=== PATIENT | female | born 1995 ===

== ENCOUNTER 2020-12-30 03:52 | Inpatient (IN) | payer OTHER ==
[2020-12-30] MEDS ORDERED: Nalbuphine 10 MG/1 ML Vial IVPUSH PRN (09:13)
[2020-12-30] MEDS ORDERED: Water For Irrigation,Sterile 1,000 ML Container IRR PRN (09:13)
[2020-12-30] MEDS ORDERED: Tranexamic Acid 1,000 MG in Sodium Chloride 0.9% 100 ML IV PRN (09:13)
[2020-12-30] MEDS ORDERED: Sodium Chloride 0.9% 2.5 ML Syringe FLUSH PRN (09:13)
[2020-12-30] MEDS ORDERED: Misoprostol 200 MCG Tab PO PRN (09:13)
[2020-12-30] MEDS ORDERED: Sodium Chloride 0.9% 10 ML SDV IV PRN (09:13)
[2020-12-30] MEDS ORDERED: Lidocaine 1% 50 ML MDV INJECT PRN (09:13)
[2020-12-30] MEDS ORDERED: Carboprost Tromethamine 250 MCG/1 ML Amp IM PRN (09:13)
[2020-12-30] MEDS ORDERED: Sodium Chloride 0.9% 10 ML Syringe FLUSH PRN (09:13)
[2020-12-30] MEDS ORDERED: Butorphanol 1 MG/ML SDV IVPUSH PRN (09:13)
[2020-12-30] MEDS ORDERED: Methylergonovine 0.2 MG/1 ML Amp IM PRN (09:13)
[2020-12-30] MEDS ORDERED: Oxytocin/0.9 % Sodium Chloride 30 UNIT/500 ML BAG IV SCH (09:15)
[2020-12-30] MEDS ORDERED: Lactated Ringers 1,000 ML IV SCH (09:15)
--- NOTE | 2020-12-30 09:35 | PCM.PREANE ---
Preanesthetic Assessment - Procedure Proposed Procedure: Interthecal for labor and delivery - Anesthesia/Transfusion/Family Hx Anesthesia History: Prior Anesthesia Without Reaction Family History of Anesthesia Reaction: No Transfusion History: No Prior Transfusion(s) - Review of Systems General: No Symptoms Pulmonary: No Symptoms Cardiovascular: No Symptoms Gastrointestinal: No Symptoms Neurological: No Symptoms Other: Reports: None - Physical Assessment NPO Status Date: 12/30/20 NPO Status Time: 06:00 Height: 5 ft 2 in Weight: 173 lb ASA Class: 2 Mental Status: Alert & Oriented x3 Airway Class: Mallampati = 2 Dentition: Reports: Normal Dentition ROM/Head Extension: Full Lungs: Clear to Auscultation, Normal Respiratory Effort Cardiovascular: Regular Rate, Regular Rhythm - Lab Values: Laboratory Last Values WBC 15.09 K/uL (4.0-11.0) H 12/30/20 08:50 RBC 3.82 M/uL (4.30-5.90) L 12/30/20 08:50 Hgb 11.1 g/dL (12.0-16.0) L 12/30/20 08:50 Hct 33.1 % (36.0-46.0) L 12/30/20 08:50 MCV 86.6 fL (80.0-98.0) 12/30/20 08:50 MCH 29.1 pg (27.0-32.0) 12/30/20 08:50 MCHC 33.5 g/dL (31.0-37.0) 12/30/20 08:50 RDW Std Deviation 44.2 fl (28.0-62.0) 12/30/20 08:50 RDW Coeff of Eh 14 % (11.0-15.0) 12/30/20 08:50 Plt Count 386 K/uL (150-400) 12/30/20 08:50 MPV 10.60 fL (7.40-12.00) 12/30/20 08:50 Nucleated RBC % 0.0 /100WBC 12/30/20 08:50 Nucleated RBCs # 0 K/uL 12/30/20 08:50 Urine Color YELLOW 12/30/20 03:52 Urine Appearance CLEAR 12/30/20 03:52 Urine pH 6.5 (5.0-8.0) 12/30/20 03:52 Ur Specific [place] 1.020 (1.001-1.035) 12/30/20 03:52 Urine Protein NEGATIVE mg/dL (NEGATIVE) 12/30/20 03:52 Urine Glucose (UA) NEGATIVE mg/dL (NEGATIVE) 12/30/20 03:52 Urine Ketones NEGATIVE mg/dL (NEGATIVE) 12/30/20 03:52 Urine Occult Blood NEGATIVE (NEGATIVE) 12/30/20 03:52 Urine Nitrite NEGATIVE (NEGATIVE) 12/30/20 03:52 Urine Bilirubin NEGATIVE (NEGATIVE) 12/30/20 03:52 Urine Urobilinogen 0.2 EU/dL (<2.0) 12/30/20 03:52 Ur Leukocyte Esterase NEGATIVE (NEGATIVE) 12/30/20 03:52 - Allergies Allergies/Adverse Reactions: Allergies Allergy/AdvReac Type Severity Reaction Status Date / Time No Known Allergies Allergy Verified 12/30/20 04:44 - Blood Blood Available: Yes Product(s) Available: PRBC - Anesthesia Plan Pre-Op Medication Ordered: None - Acknowledgements Anesthesia Type Planned: Spinal Pt an Appropriate Candidate for the Planned Anesthesia: Yes Alternatives and Risks of Anesthesia Discussed w Pt/Guardian: Yes Pt/Guardian Understands and Agrees with Anesthesia Plan: Yes PreAnesthesia Questionnaire - HOME MEDS Home Medications: Home Meds Cyanocobalamin (Vitamin B12) [Vitamin B12] 1 tab PO DAILY 12/30/20 [History] Multivitamin with Minerals [Hair, Skin and Nails] 1 tab PO DAILY 12/30/20 [History] Pnv No.95/Ferrous Fum/Folic AC [ Vitamins Tablet] 1 tab PO DAILY 12/30/20 [History] - CURRENT (IN HOUSE) MEDS Current Meds: Current Medications Butorphanol Tartrate (Butorphanol 1 Mg/Ml Sdv) 1 mg IVPUSH Q1H PRN PRN Reason: Pain (severe 7-10) Carboprost Tromethamine (Carboprost Tromethamine 250 Mcg/1 Ml Amp) 250 mcg IM ASDIRECTED PRN PRN Reason: Post Hemorrhage Lactated Ringer's (Ringers, Lactated) 1,000 mls @ 150 mls/hr IV ASDIRECTED TAHIRA Oxytocin/Sodium Chloride (Oxytocin 30 Unit/500 Ml-Ns) 30 unit in 500 mls @ 999 mls/hr IV TITRATE TAHIRA Tranexamic Acid 1,000 mg/ (Sodium Chloride) 110 mls @ 660 mls/hr IV ONETIME PRN PRN Reason: Bleeding Lidocaine HCl (Lidocaine 1% 50 Ml Mdv) 50 ml INJECT ONETIME PRN PRN Reason: Laceration repair Methylergonovine Maleate (Methylergonovine 0.2 Mg/1 Ml Amp) 0.2 mg IM ASDIRECTED PRN PRN Reason: Post Hemorrhage Misoprostol (Misoprostol 200 Mcg Tab) 200 mcg PO ONETIME PRN PRN Reason: Post Hemorrhage Nalbuphine HCl (Nalbuphine 10 Mg/1 Ml Vial) 10 mg IVPUSH Q1H PRN PRN Reason: Pain (severe 7-10) Sodium Chloride (Sodium Chloride 0.9% 10 Ml Syringe) 10 ml FLUSH ASDIRECTED PRN PRN Reason: Keep Vein Open Sodium Chloride (Sodium Chloride 0.9% 2.5 Ml Syringe) 2.5 ml FLUSH ASDIRECTED PRN PRN Reason: Keep Vein Open Sodium Chloride (Sodium Chloride 0.9% 10 Ml Sdv) 10 ml IV ASDIRECTED PRN PRN Reason: IV Use Sterile Water (Water For Irrigation,Sterile 1,000 Ml Container) 1,000 ml IRR ASDIRECTED PRN PRN Reason: delivery - Pre-Procedure Checklist Attending Provider Aware: Yes Chart Reviewed: Yes Consent Signed: Yes Labs Reviewed: Hematocrit, Hemoglobin, Platelet VS/FHR Reviewed: Yes Patient Identification Confirmation Method: Verbal Patient Pt an Appropriate Candidate for the Planned Anesthesia: Yes Alternatives and Risks of Anesthesia Discussed w Pt/Guardian: Yes - Procedure Procedure Start Date: 12/30/20 Procedure Start Time: 09:[address]: Reports: Blood Pressure, Heart Rate, SPO2 Functional IV: Yes Safety Measures: Reports: Patient Identified, Procedure Verified, Site Verified, Procedure Time Out Patient Position: Reports: Other (Rt lateral) Prep: Reports: Betadine x3 Regional Placement Level: Reports: L3-4 Needle: Reports: Pencan 25g Approach: Reports: Midline Parasthesia: Reports: None, Right Transient Fluid Obtained: Reports: Cerebrospinal Fluid Barbotage: Yes Total Volume Injected (ml): 1 Time Medication Injected: 09:24 Patient Position Post Placement: Reports: Supline/CHELLE VS and FHR Monitored in Unit Post Placement: Yes Procedure End Date: 12/30/20 Procedure End Time: 10:20
[2020-12-30] MEDS ORDERED: Ibuprofen 400 MG Tab PO PRN (10:41)
[2020-12-30] MEDS ORDERED: Benzocaine/Menthol 20%-0.5% Spray 78 GM Cannister TOP PRN (10:41)
[2020-12-30] MEDS ORDERED: Bisacodyl 10 MG Supp RECTAL PRN (10:41)
[2020-12-30] MEDS ORDERED: oxyCODONE 5 MG Tab PO PRN (10:41)
[2020-12-30] MEDS ORDERED: Witch Hazel Medicated Pads 40/Jar TOP PRN (10:41)
[2020-12-30] MEDS ORDERED: Acetaminophen 500 MG Tab PO PRN (10:41)
[2020-12-30] MEDS ORDERED: Lanolin 100% Cream 7 GM Tube TOP PRN (10:41)
[2020-12-30] MEDS ORDERED: Docusate Sodium 100 MG Cap PO PRN (10:41)
--- NOTE | 2020-12-30 10:49 | PCM.OPNOTE ---
- General Post-Op/Procedure Note Date of Surgery/Procedure: 12/30/20 Operative Procedure(s): /1st MLL repaired Findings: Viable Female APGARs 8, 9 wieght 6 lb 14 ox. Spontaneous delivery intact placenta with 3V cord. Pre Op Diagnosis: 37/3 week IUP. Labor Post-Op Diagnosis: Same Anesthesia Technique: Other (see below) (Intrathecal) Primary Surgeon: Merlene Mcgrath EBL in mLs: 300 Complications: none known Condition: Stable Free Text/Narrative:: Dictation [id number]
--- NOTE | 2020-12-30 11:40 | OR ---
SURGEON: Merlene Mcgrath M.D. DATE OF PROCEDURE: 12/30/2020 PREOPERATIVE DIAGNOSES: 1. 37 and 3-week intrauterine . 2. Active labor. POSTOPERATIVE DIAGNOSES: 1. 37 and 3-week intrauterine . 2. Active labor. PROCEDURE: Spontaneous vaginal delivery with a first-degree midline laceration repaired. PRIMARY SURGEON: Merlene Mcgrath M.D. ANESTHESIA: Intrathecal. ESTIMATED BLOOD LOSS: 300 mL. COMPLICATIONS: None known. FINDINGS: Viable female. scores 8 at one minute and 9 at five minutes. Weight of 6 pounds 14 ounces. Spontaneous delivery, intact placenta, three-vessel cord, clear amniotic fluid. DISPOSITION: The patient in LDRP. Infant to nursery. PROCEDURE DETAILS: Sil is a 25-year-old G1, P0 at 37-3/7 weeks gestational age who presented on the housetrailer servicer of 12/30/2020 with regular contractions. With observation, she changed her cervix from 2 cm to 5 cm, was being admitted, and shortly thereafter had spontaneous rupture of membranes. She is group B beta strep negative. She quickly progressed to complete with an urge to push and quickly progressed to complete. The patient was able to undergo an intrathecal satisfactorily, became more comfortable. She was complete, 100% effaced, and +2. The fluid was clear. Once the patient became more comfortable with the intrathecal, heart tones remained category 1. She was placed in modified dorsal lithotomy position, was prepped and draped in the usual aseptic manner, began pushing efforts, pushed readily, and was able to deliver 's head atraumatically spontaneously, followed by anterior shoulder, posterior shoulder, and remainder of body without difficulty. The 's oropharynx and nares were bulb suctioned. was handed off to her mother with attending nursery staff at the side. After a delay, cord was clamped x2 and cut. Arterial, venous blood, and cord blood collection were now obtained. Light pressure was applied while the placenta was delivered spontaneously intact. Vigorous fundal uterine massage was then applied while 30 units of Pitocin was delivered in 500 mL of IV fluid. Upon inspection of cervix, vaginal sidewall, and perineum, there was found to be a first-degree midline laceration. Two superficial bilateral labial lacerations were repaired using 3-0 Vicryl in the usual fashion. Hemostasis appeared evident. Uterus remained firm. Sponge count, instrument count, and needle count were correct. The patient will remain in LDRP, to nursery. LESLIE / ELIZABETH /[id number]
[2020-12-30] MEDS: Ibuprofen 800 MG Tab PO PRN (14:49)
--- NOTE | 2020-12-30 15:55 | PCM.POSTAN ---
POST ANESTHESIA ASSESSMENT - MENTAL STATUS Mental Status: Alert, Oriented - RESPIRATORY Respiratory Status: Respiratory Rate WNL, Airway Patent, O2 Saturation Stable - CARDIOVASCULAR CV Status: Pulse Rate WNL, Blood Pressure Stable - GASTROINTESTINAL GI Status: No Symptoms - POST OP HYDRATION Hydration Status: Adequate & Stable
--- NOTE | 2020-12-30 15:56 | PCM48HPAN ---
Post Anesthesia Note - EVALUATION WITHIN 48HRS OF ANESTHETIC Vital Signs in Normal Range: Yes Patient Participated in Evaluation: Yes Respiratory Function Stable: Yes Airway Patent: Yes Cardiovascular Function Stable: Yes Hydration Status Stable: Yes Pain Control Satisfactory: Yes Nausea and Vomiting Control Satisfactory: Yes Mental Status Recovered: Yes
[2020-12-30] MEDS ORDERED: Calcium Carbonate 500 MG Tab.Chew PO PRN (19:32)
[2020-12-30] MEDS: Acetaminophen 500 MG Tab PO PRN (20:05)
[2020-12-31] MEDS: Ibuprofen 800 MG Tab PO PRN (05:26)
--- NOTE | 2020-12-31 10:48 | PCM.PNPP ---
- General Info Date of Service: 12/31/20 Functional Status: Reports: Pain Controlled, Tolerating Diet, Ambulating, Urinating - Review of Systems General: Denies: Fever, Weakness Pulmonary: Denies: Shortness of Breath, Wheezing Cardiovascular: Denies: Chest Pain, Lightheadedness Gastrointestinal: Denies: Abdominal Pain, Nausea, Vomiting Genitourinary: Denies: Flank Pain Musculoskeletal: Reports: No Symptoms Skin: Reports: No Symptoms Neurological: Reports: No Symptoms Psychiatric: Reports: No Symptoms - General Info Date of Service: 12/31/20 - Patient Data Vital Signs - Most Recent: Last Vital Signs Temp 36.9 C 12/31/20 05:00 Pulse 75 12/31/20 05:00 Resp 16 12/31/20 05:00 BP 119/81 12/31/20 05:00 Pulse Ox 99 12/31/20 05:00 Weight - Most Recent: 78.471 kg I&O - Last 24 Hours: Intake & Output 12/30/20 12/31/20 12/31/20 22:59 06:59 14:59 Intake Total 2 Balance 2 Lab Results - Last 24 Hours: Laboratory Results - last 24 hr 12/30/20 12/30/20 12/30/20 Range/Units 08:50 10:14 14:12 Hgb (12.0-16.0) g/dL Hct (36.0-46.0) % Cord ABG pH 7.22 (7.18-7.38) Cord ABG Base Excess -12 L (-10--2) Cord VBG pH 7.29 (7.25-7.45) Cord VBG Base Excess -10 (-10--2) Blood Type O NEGATIVE Antibody Screen NEGATIVE Screen Cancelled RhIG Candidate? Cancelled Rhogam Indicated YES, BABY RH POS H KB Screen SEE NOTE KB Cells Counted 3 KB Red Cells Counted 2110 KB % Cells 0.14 Doses of RhIg Required 1 12/31/20 Range/Units 05:15 Hgb 10.8 L (12.0-16.0) g/dL Hct 32.9 L (36.0-46.0) % Cord ABG pH (7.18-7.38) Cord ABG Base Excess (-10--2) Cord VBG pH (7.25-7.45) Cord VBG Base Excess (-10--2) Blood Type Antibody Screen Screen RhIG Candidate? Rhogam Indicated KB Screen KB Cells Counted KB Red Cells Counted KB % Cells Doses of RhIg Required Med Orders - Current: Current Medications Acetaminophen (Acetaminophen 500 Mg Tab) 500 mg PO Q4H PRN PRN Reason: Pain (mild 1-3) Acetaminophen (Acetaminophen 500 Mg Tab) 1,000 mg PO Q4H PRN PRN Reason: Pain (mild 1-3) Last Admin: 12/30/20 20:05 Dose: 1,000 mg Documented by: Benzocaine/Menthol (Benzocaine/Menthol 20%-0.5% Fosters 78 Gm Cannister) 78 gm TOP ASDIRECTED PRN PRN Reason: Perineal Comfort Measure Last Admin: 12/30/20 12:33 Dose: 1 can Documented by: Bisacodyl (Bisacodyl 10 Mg Supp) 10 mg RECTAL ONETIME PRN PRN Reason: Constipation Calcium Carbonate/Glycine (Calcium Carbonate 500 Mg Tab.Chew) 500 mg PO Q2HR PRN PRN Reason: Indigestion Last Admin: 12/30/20 20:03 Dose: 500 mg Documented by: Carboprost Tromethamine (Carboprost Tromethamine 250 Mcg/1 Ml Amp) 250 mcg IM ASDIRECTED PRN PRN Reason: Post Hemorrhage Docusate Sodium (Docusate Sodium 100 Mg Cap) 100 mg PO Q12H PRN PRN Reason: Constipation Last Admin: 12/30/20 20:12 Dose: 100 mg Documented by: Emollient Ointment (Lanolin 100% Cream 7 Gm Tube) 0 gm TOP ASDIRECTED PRN PRN Reason: Sore Nipples Last Admin: 12/30/20 20:12 Dose: 7 gm Documented by: Lactated Ringer's (Ringers, Lactated) 1,000 mls @ 150 mls/hr IV ASDIRECTED TAHIRA Oxytocin/Sodium Chloride (Oxytocin 30 Unit/500 Ml-Ns) 30 unit in 500 mls @ 999 mls/hr IV TITRATE TAHIRA Last Admin: 12/30/20 10:15 Dose: 999 mls/hr Documented by: Tranexamic Acid 1,000 mg/ (Sodium Chloride) 110 mls @ 660 mls/hr IV ONETIME PRN PRN Reason: Bleeding Ibuprofen (Ibuprofen 400 Mg Tab) 400 mg PO Q4H PRN PRN Reason: Pain (mild 1-3) Ibuprofen (Ibuprofen 800 Mg Tab) 800 mg PO Q6H PRN PRN Reason: Pain (mild 1-3) Last Admin: 12/31/20 05:26 Dose: 800 mg Documented by: Lidocaine HCl (Lidocaine 1% 50 Ml Mdv) 50 ml INJECT ONETIME PRN PRN Reason: Laceration repair Nalbuphine HCl (Nalbuphine 10 Mg/1 Ml Vial) 10 mg IVPUSH Q1H PRN PRN Reason: Pain (severe 7-10) Oxycodone HCl (Oxycodone 5 Mg Tab) 5 mg PO Q2H PRN PRN Reason: Pain (severe 7-10) Sodium Chloride (Sodium Chloride 0.9% 10 Ml Syringe) 10 ml FLUSH ASDIRECTED PRN PRN Reason: Keep Vein Open Sodium Chloride (Sodium Chloride 0.9% 2.5 Ml Syringe) 2.5 ml FLUSH ASDIRECTED PRN PRN Reason: Keep Vein Open Sodium Chloride (Sodium Chloride 0.9% 10 Ml Sdv) 10 ml IV ASDIRECTED PRN PRN Reason: IV Use Sterile Water (Water For Irrigation,Sterile 1,000 Ml Container) 1,000 ml IRR ASDIRECTED PRN PRN Reason: delivery Witch Latoya (Witch Latoya Medicated Pads 40/Jar) 1 pad TOP ASDIRECTED PRN PRN Reason: comfort care Last Admin: 12/30/20 12:33 Dose: 1 tub Documented by: Discontinued Medications Butorphanol Tartrate (Butorphanol 1 Mg/Ml Sdv) 1 mg IVPUSH Q1H PRN PRN Reason: Pain (severe 7-10) Methylergonovine Maleate (Methylergonovine 0.2 Mg/1 Ml Amp) 0.2 mg IM ASDIRECTED PRN PRN Reason: Post Hemorrhage Misoprostol (Misoprostol 200 Mcg Tab) 200 mcg PO ONETIME PRN PRN Reason: Post Hemorrhage - Interaction Support Person: , Mother - Recovery Exam Fundal Tone: Firm Fundal Level: At Umbilicus Fundal Placement: Midline Lochia Amount: Scant Lochia Color: Rubra/Red Perineum Description: Other (see below) Other Perinuem Description: First degree tear, repaired Episiotomy/Laceration: Approximated Bladder Status: Voiding - Exam General: Alert, Oriented Lungs: Normal Respiratory Effort Cardiovascular: Regular Rate, Regular Rhythm GI/Abdominal Exam: Normal Bowel Sounds, Soft Extremities: Pedal Edema (trace). No: Chan's Sign Skin: Warm, Dry, Intact Neurological: No New Focal Deficit Psy/Mental Status: Alert, Normal Affect, Normal Mood - Problem List & Annotations (1) Vaginal delivery SNOMED Code(s): 066902306 Code(s): O80 - ENCOUNTER FOR FULL-TERM UNCOMPLICATED DELIVERY Status: Acute Current Visit: Yes - Problem List Review Problem List Initiated/Reviewed/Updated: Yes - My Orders Last 24 Hours: My Active Orders 12/30/20 10:41 Patient Status [ADT] Routine May Shower [RC] ASDIRECTED Up ad Betzy [RC] ASDIRECTED Vital Signs [RC] PER UNIT ROUTINE Acetaminophen [Tylenol Extra Strength] 1,000 mg PO Q4H PRN Acetaminophen [Tylenol Extra Strength] 500 mg PO Q4H PRN Benzocaine/Menthol [Dermoplast Pain Relief 20%-0.5% Fosters] 78 gm TOP ASDIRECTED PRN Docusate Sodium [Colace] 100 mg PO Q12H PRN Ibuprofen [Motrin] 400 mg PO Q4H PRN Ibuprofen [Motrin] 800 mg PO Q6H PRN Lanolin [Lansinoh HPA] See Dose Instructions TOP ASDIRECTED PRN bisacodyL [Dulcolax] 10 mg RECTAL ONETIME PRN oxyCODONE 5 mg PO Q2H PRN witch Latoya [Tucks] 1 pad TOP ASDIRECTED PRN Assess Lochia [WOMSER] Per Unit Routine Assess Uterine Involution [WOMSER] Per Unit Routine Peripheral IV Discontinue [OM.PC] Routine 12/30/20 10:42 Ice Therapy [OM.PC] Per Unit Routine Perineal Care [OM.PC] Per Unit Routine 12/30/20 Lunch Regular Diet [DIET] 12/30/20 19:32 Calcium Carbonate [Tums] 500 mg PO Q2HR PRN 12/31/20 10:46 Ready for Discharge [RC] PER UNIT ROUTINE - Assessment Assessment:: PPD 1 status post - Plan Plan:: Patient is doing well overall. VS and labs are reassuring. Discharge to home today. Discharge instructions reviewed. Follow up at [facility] 4 weeks.
[2020-12-31] MEDS: Acetaminophen 500 MG Tab PO PRN ×2 (14:17→21:17)
[2021-01-01] MEDS: Acetaminophen 500 MG Tab PO PRN (05:08)
--- NOTE | 2021-01-01 08:09 | PCM.PNPP ---
- General Info Date of Service: 01/01/21 Subjective Update: Resting comfortably in bed during rounds. Pain well controlled. Ambulating and voiding without difficulty. Lochia decreasing. Tolerating regular diet. and breast pumping for baby. - General Info Date of Service: 01/01/21 - Patient Data Vital Signs - Most Recent: Last Vital Signs Temp 97.8 F 12/31/20 21:33 Pulse 64 12/31/20 21:33 Resp 15 12/31/20 21:33 BP 118/71 12/31/20 21:33 Pulse Ox 96 12/31/20 08:40 Weight - Most Recent: 173 lb Med Orders - Current: Current Medications Acetaminophen (Acetaminophen 500 Mg Tab) 500 mg PO Q4H PRN PRN Reason: Pain (mild 1-3) Acetaminophen (Acetaminophen 500 Mg Tab) 1,000 mg PO Q4H PRN PRN Reason: Pain (mild 1-3) Last Admin: 01/01/21 05:08 Dose: 1,000 mg Documented by: Benzocaine/Menthol (Benzocaine/Menthol 20%-0.5% [place] 78 Gm Cannister) 78 gm TOP ASDIRECTED PRN PRN Reason: Perineal Comfort Measure Last Admin: 12/30/20 12:33 Dose: 1 can Documented by: Bisacodyl (Bisacodyl 10 Mg Supp) 10 mg RECTAL ONETIME PRN PRN Reason: Constipation Calcium Carbonate/Glycine (Calcium Carbonate 500 Mg Tab.Chew) 500 mg PO Q2HR PRN PRN Reason: Indigestion Last Admin: 12/30/20 20:03 Dose: 500 mg Documented by: Carboprost Tromethamine (Carboprost Tromethamine 250 Mcg/1 Ml Amp) 250 mcg IM ASDIRECTED PRN PRN Reason: Post Hemorrhage Docusate Sodium (Docusate Sodium 100 Mg Cap) 100 mg PO Q12H PRN PRN Reason: Constipation Last Admin: 12/30/20 20:12 Dose: 100 mg Documented by: Emollient Ointment (Lanolin 100% Cream 7 Gm Tube) 0 gm TOP ASDIRECTED PRN PRN Reason: Sore Nipples Last Admin: 12/30/20 20:12 Dose: 7 gm Documented by: Lactated Ringer's (Ringers, Lactated) 1,000 mls @ 150 mls/hr IV ASDIRECTED TAHIRA Oxytocin/Sodium Chloride (Oxytocin 30 Unit/500 Ml-Ns) 30 unit in 500 mls @ 999 mls/hr IV TITRATE TAHIRA Last Admin: 12/30/20 10:15 Dose: 999 mls/hr Documented by: Tranexamic Acid 1,000 mg/ (Sodium Chloride) 110 mls @ 660 mls/hr IV ONETIME PRN PRN Reason: Bleeding Ibuprofen (Ibuprofen 400 Mg Tab) 400 mg PO Q4H PRN PRN Reason: Pain (mild 1-3) Ibuprofen (Ibuprofen 800 Mg Tab) 800 mg PO Q6H PRN PRN Reason: Pain (mild 1-3) Last Admin: 12/31/20 05:26 Dose: 800 mg Documented by: Lidocaine HCl (Lidocaine 1% 50 Ml Mdv) 50 ml INJECT ONETIME PRN PRN Reason: Laceration repair Nalbuphine HCl (Nalbuphine 10 Mg/1 Ml Vial) 10 mg IVPUSH Q1H PRN PRN Reason: Pain (severe 7-10) Oxycodone HCl (Oxycodone 5 Mg Tab) 5 mg PO Q2H PRN PRN Reason: Pain (severe 7-10) Sodium Chloride (Sodium Chloride 0.9% 10 Ml Syringe) 10 ml FLUSH ASDIRECTED PRN PRN Reason: Keep Vein Open Sodium Chloride (Sodium Chloride 0.9% 2.5 Ml Syringe) 2.5 ml FLUSH ASDIRECTED PRN PRN Reason: Keep Vein Open Sodium Chloride (Sodium Chloride 0.9% 10 Ml Sdv) 10 ml IV ASDIRECTED PRN PRN Reason: IV Use Sterile Water (Water For Irrigation,Sterile 1,000 Ml Container) 1,000 ml IRR ASDIRECTED PRN PRN Reason: delivery Witch Latoya (Witch Latoya Medicated Pads 40/Jar) 1 pad TOP ASDIRECTED PRN PRN Reason: comfort care Last Admin: 12/30/20 12:33 Dose: 1 tub Documented by: Discontinued Medications Butorphanol Tartrate (Butorphanol 1 Mg/Ml Sdv) 1 mg IVPUSH Q1H PRN PRN Reason: Pain (severe 7-10) Methylergonovine Maleate (Methylergonovine 0.2 Mg/1 Ml Amp) 0.2 mg IM ASDIRECTED PRN PRN Reason: Post Hemorrhage Misoprostol (Misoprostol 200 Mcg Tab) 200 mcg PO ONETIME PRN PRN Reason: Post Hemorrhage - Infant Interaction Infant Disposition, : [place] in Room with Family Infant Interaction: Holding Infant Feeding: Breastfed ; Nursed Well Support Person: , Mother - Recovery Exam Fundal Tone: Firm Fundal Level: 1 Fingerbreadths Below Umbilicus Fundal Placement: Midline Lochia Amount: Scant Lochia Color: Rubra/Red Perineum Description: Other (see below) Other Perinuem Description: First degree tear, repaired Episiotomy/Laceration: Approximated Bladder Status: Voiding - Exam General: Alert Lungs: Normal Respiratory Effort Cardiovascular: Regular Rate GI/Abdominal Exam: Soft, Non-Tender Extremities: Normal Inspection, Normal Range of Motion, Non-Tender, Pedal Edema (Trace) Skin: Warm, Dry, Intact Neurological: No New Focal Deficit Psy/Mental Status: Normal Mood - Problem List Review Problem List Initiated/Reviewed/Updated: Yes - Assessment Assessment:: PPD 2 status post - Plan Plan:: Patient is doing well overall. VS and labs are reassuring. Discharge to home today. Discharge instructions reviewed. Follow up at [facility] 4 weeks.
[2021-01-01] MEDS: Ibuprofen 800 MG Tab PO PRN (08:20)
== END 2021-01-01 13:30 | disposition home or self-care (01) | DRG 807 ==
LOC: MW.OBCHECK 03:52 → MW.OB 09:13 → OBSVTOIN 10:41 → MW.OB 15:16
PROVIDERS: ADMIT Obstetrics & Gynecology; ATTEND Obstetrics & Gynecology
PROC: 10E0XZZ Delivery of Products of Conception, External Approach (ICD-10-PCS; principal; 2020-12-30)
PROC: 0HQ9XZZ Repair Perineum Skin, External Approach (ICD-10-PCS; 2020-12-30)
PROC: 3E0R3BZ Introduction of Anesthetic Agent into Spinal Canal, Percutaneous Approach (ICD-10-PCS; 2020-12-30)
DX: O70.0 First degree perineal laceration during delivery (principal); Z37.0 Single live birth; Z3A.37 37 weeks gestation of pregnancy
CPT/HCPCS: 36415; 59025; 59409; 81003; 82803; 85014; 85018; 85027; 85460; 86592; 86850; 86900; 86901; A9270-GY; J2590; J2790